=== PATIENT | female | born 1965 | race African-American/Black ===

== ENCOUNTER 2017-07-12 06:29 | Day surgery (SDC) | payer MEDICARE ==
[~2017-07-12] VITALS: Ht 165.1 cm; Wt 127.0 kg
--- NOTE | ~2017-07-12 | OP ---
PATIENT NAME: TOSHA CARTER MEDICAL RECORD: [id number] :61 LOCATION:D.[facility] ADMISSION DATE: SURGEON: GRAHAM HOUSTON MD DATE OF OPERATION: 07/12/2017 PREOPERATIVE DIAGNOSES: End-stage renal disease and obesity. ADDITIONAL DIAGNOSIS: Inability to access arteriovenous fistula. POSTOPERATIVE DIAGNOSES: End-stage renal disease and obesity. OPERATION PERFORMED: Creation of a translocated right brachiobasilic AV fistula. SURGEON: Graham Houston MD VEGETABLE SPECKER: ANESTHESIA: Nerve block and general with LMA per [employer]. REFERRING PHYSICIAN: Earl Penaloza MD PREOPERATIVE NOTE: Ms. Tosha Carter is a 52-year-old -[place] female, who had an AV fistula created in the right antecubital space back in January. This was done elsewhere, I believe. Since that time, her fistula has not matured at least to the point that it can be used, in fact it could barely be palpated. She is an obese lady with very fleshy arms, but in addition to that, it turns out that this was a basilic vein fistula, which was never translocated or superficialized. I saw this patient at [facility] and did a fistulogram recently and informed her that she would have to have a translocation procedure before this could be a usable fistula. So, she is brought to the operating room here at [place] for that today. With the patient under a nerve block and general anesthesia, she was prepped and draped in a sterile manner. I examined her with a duplex ultrasound and then made an incision over the medial aspect of the arm, which I extended up to the axilla and down to the antecubital space. The underlying basilic vein, which was arterialized, was dissected from the surrounding tissues and I saved as many of the cutaneous nerves as possible from around the vein. Tributaries were divided between clips and Vicryl ligatures. The vein was treated repeatedly with topical papaverine and kept moist with saline. Hemostasis was also obtained with electrocautery. The vein was occluded and then transected and beveled near the arterial anastomosis. The vein was flushed with heparinized saline and gently distended hydrostatically. It was treated again with topical papaverine. It was then placed in an anterolateral tunnel, which I made with a Nicol tunneler as close to the skin or just beneath the skin as possible. An end-to-end dsaa-ob-bqly anastomosis was then performed with running 7-0 Prolene and when that was completed and the occluding loops and clamps were released, excellent flow was obtained in the fistula, which was not under any tension as there had been an excellent length of redundant vein available. The fistula functioned well and I believe will likely provide a very good dialysis access for this lady. The wound was irrigated with Ancef and gentamicin solution. I placed a 10-mm flat Reyes-Junior drain and brought it out through an inferior stab and her distal stab incision and attached to suction. The wound was closed with interrupted inverted 3-0 Vicryl and then running intracuticular 4-0 OPERATIVE REPORT [id number] TOSHA CARTER Monocryl and Dermabond glue. The incision was dressed with Maxorb Ag, Tegaderm, and Cavilon skin prep. A chlorhexidine Biodisk was placed around the drain at its exit site and an additional sterile dressing was applied over that. The drain was connected to a suction bulb and the patient awakened and was taken to the recovery room in stable condition. Blood loss during the operation was about 50 cc, none was replaced intraoperatively. All sponges, instruments, and needles were accounted for and 1 drain was used as I described. PLAN: The patient is given a prescription for [place] 5 mg per 325 mg and a return appointment scheduled for her to see me on Saturday next week. I plan to change her dressing and remove the drain at that time. Hopefully, she will be able to have her ____ removed and begin having dialysis via the newly constructed translocated basilic vein fistula in about 2, perhaps 3 weeks. TRANSINT:[id number] Voice Confirmation ID: [id number] DOCUMENT ID: [id number] GRAHAM HOUSTON MD at 1411 CC: [id number] DICTATION DATE: 07/12/171826 RESIDENCE LEASING AGENT: 07/12/17 2313 [facility] 07/12/17 [facility] [address] [place] [address]
[2017-07-12 07:45] LABS: APTT 41.9 SECONDS (22.8-39.4); INR 1.19 (0.85-1.17); PROTIME 14.7 SECONDS (11.6-15.0)
[2017-07-12 07:50] LABS: BASOPHILS 0.2 % (0-2); HEMATOCRIT 35.9 % (36.0-48.0); HEMOGLOBIN 11.3 g/dL (12-16); IMMATURE GRANULOCYTES 0.4 % (0-5); LYMPHOCYTES 26.5 % (15-50); MCHC 31.5 g/dL (31.0-37.0); MCV 92.1 fL (80.0-100.0); MEAN PLATELET VOLUME 10.1 fL (7.4-10.4); MONOCYTES 9.7 % (2-11); NEUTROPHILS 60.2 % (40-80); PLATELET COUNT 161 10x3/uL (130-400); RDW 14.7 % (11.5-14.5); WBC 5.6 10x3/uL (4.8-10.8)
[2017-07-12 07:51] LABS: ANION GAP 15.3 mmol/L (8-16); CALCIUM 7.8 mg/dL (8.5-10.1); CARBON DIOXIDE 26.4 mmol/L (21.0-32.0); CREATININE - SERUM 7.8 mg/dL (0.6-1.3); POTASSIUM - SERUM 3.7 mmol/L (3.5-5.1)
[2017-07-12] MEDS ORDERED: CARDURA1 MG PO (08:12)
[2017-07-12] MEDS ORDERED: PRAVACHOL20 MG PO (08:12)
[2017-07-12] MEDS ORDERED: BAYER CHEWABLE81 MG PO (08:13)
[2017-07-12] MEDS ORDERED: PHOSLO667 MG PO (08:16)
[2017-07-12] MEDS ORDERED: TOPAMAX25 MG PO (08:17)
[2017-07-12] MEDS ORDERED: COREG12.5 MG PO (08:17)
[2017-07-12] MEDS ORDERED: NORVASC5 MG PO (08:18)
[2017-07-12] MEDS ORDERED: SENSIPAR30 MG PO (08:18)
[2017-07-12] MEDS ORDERED: XANAX0.25 MG PO (08:19)
[2017-07-12] MEDS ORDERED: ZOFRAN4 MG PO (08:20)
[2017-07-12 08:32] VITALS: BP 96/53; Ht 165.1 cm; Wt 127.0 kg
[2017-07-12] MEDS ORDERED: HYDROCODON-ACE1 EAC7 PO (12:42)
== END 2017-07-12 15:35 | disposition home or self-care (01) ==
LOC: D.OPS 06:29
PROVIDERS: Internal Medicine Nephrology
DX: I12.0 Hypertensive chronic kidney disease with stage 5 chronic kidney disease or end stage renal disease (principal); N18.6 End stage renal disease; Z99.2 Dependence on renal dialysis; J44.9 Chronic obstructive pulmonary disease, unspecified; K21.9 Gastro-esophageal reflux disease without esophagitis; E78.5 Hyperlipidemia, unspecified; Z79.01 Long term (current) use of anticoagulants